=== PATIENT | male | born 1945 | race Caucasian/White ===

== ENCOUNTER 2020-01-27 12:23 | Observation (INO) | payer MEDICARE ==
[~2020-01-27] VITALS: Ht 177.8 cm; Wt 89.0 kg
--- NOTE | 2020-01-27 12:30 | NUR ---
EKG IN TRIAGE
--- NOTE | 2020-01-27 12:48 | NUR ---
74 Y/O MALE PRESENTS TO ED WITH C/O CP. "LAST THURSDAY MY AND I WERE OUT BICYCLISTS. THERE WAS A HILL OUT OF [facility] [place] [facility] THAT IS VERY STEEP AT THE TOP. BEFORE I GOT TO THE TOP I GOT A BAD PAIN IN MY CHEST. IT LASTED ABOUT 10 SECONDS. AND THEN IT HAPPENED A SECOND TIME. THEN ON THURSDAY WE DID THE SAME RIDE AND I GOT THE SAME PAIN. I DID AN EKG AT [facility] ON THURSDAY. SHE SAID I HAD AN ENLARGED RIGHT SIDE OF MY HEART. IT'S LIKE AN ELEPHANT SITTING ON MY CHEST SINCE LAST THURSDAY. IT'S ALL DAY LONG AND DOESN'T GO AWAY. SOMETIMES IT'S WORSE THAN OTHERS. I HAVE AN APPT WITH DR. IVAN THURSDAY TORY. I WOULD NOT CALL IT PAIN RIGHT NOW, DISCOMFORT. " NO N/V/D, TRAUMA, SYNCOPE, SOB. PT PLACED ON CONT PULSE OX, NIBP, COLOR MAKER.
--- NOTE | 2020-01-27 13:48 | NUR ---
PIV ESTABLISHED. BLOOD OBTAINED. PT TOLERATED WITH NO COMPLICATIONS. VSS. XRAY BEDSIDE. NADN. NO NEEDS REQUESTED AT THIS TIME.
[2020-01-27] MEDS ORDERED: ASPIRIN 81 MG TABLET CHEW ONE (13:50)
[2020-01-27 13:54] LABS: BASOPHILS # (AUTO) 0.02 x10^3/uL (0-0.1); BASOPHILS % (AUTO) 0 % (0-1); EOSINOPHILS # (AUTO) 0.07 x10^3/uL (0-0.4); EOSINOPHILS % (AUTO) 2 % (1-7); LYMPHOCYTES # (AUTO) 1.24 x10^3/uL (1-3.4); LYMPHOCYTES % (AUTO) 26 % (22-44); MD NO; MEAN CORPUSCULAR HEMOGLOBIN 31.9 pg (27.5-34.5); MEAN CORPUSCULAR VOLUME 96.7 fL (81-97); MONOCYTES # (AUTO) 0.38 x10^3/uL (0.2-0.8); MONOCYTES % (AUTO) 8 % (2-9); NEUTROPHILS # (AUTO) 3.06 x10^3/uL (1.8-6.8); NEUTROPHILS % (AUTO) 64 % (42-75); PLATELET COUNT 232 x10^3/uL (130-400); RED BLOOD COUNT 4.66 x10^6/uL (4.38-5.82); RED CELL DISTRIBUTION WIDTH 12.9 % (9.4-14.8)
[2020-01-27] MEDS ORDERED: ASPIRIN 81 MG TABLET CHEW PO ONE (14:00)
[2020-01-27] MEDS ORDERED: SODIUM CHLORIDE FLUSH 10ML SYR IVF ONE (14:00)
[2020-01-27 14:03] LABS: ALBUMIN 3.9 g/dL (3.4-5.0); ANION GAP 5 mmol/L (5-15); CALCIUM 9.4 mg/dL (8.5-10.1); CHLORIDE 109 mmol/L (98-107); CREATININE 0.91 mg/dL (0.7-1.3)
[2020-01-27 14:06] LABS: TROPONIN I < 0.015 ng/mL (0.000-0.045)
[2020-01-27] MEDS ORDERED: ROSU10TA2 PO (15:26)
--- NOTE | 2020-01-27 15:28 | NUR ---
PT STATES "I DON'T HAVE ANY CHEST PAIN, BUT I'VE HAD LIKE INDIGESTION ALL DAY. LIKE A BIG LUMP UP IN THE MIDDLE OF MY CHEST." NADN. SESAY.
[2020-01-27] MEDS ORDERED: ONDANSETRON ODT 4 MG PO PRN (15:30)
[2020-01-27] MEDS ORDERED: hydrALAzine 20 MG/ML, 1ML IVPush PRN (15:30)
[2020-01-27] MEDS ORDERED: ACETAMINOPHEN 325 MG TABLET PO PRN (15:30)
[2020-01-27] MEDS ORDERED: LABETALOL 5MG/ML, 20ML IVPush PRN (15:30)
[2020-01-27] MEDS ORDERED: MELATONIN 5 MG TABLET PO PRN (15:30)
[2020-01-27] MEDS ORDERED: ONDANSETRON 2MG/ML, 2ML IVPush PRN (15:30)
[2020-01-27] MEDS ORDERED: morphine SULFATE 10 MG/ML, 1ML IVPush PRN (15:30)
[2020-01-27] MEDS ORDERED: ENOXAPARIN 40 MG/0.4 ML SQ SCH (16:00)
--- NOTE | 2020-01-27 16:02 | NUR ---
REPORT TO CELINE BESS. ALL QUESTIONS ANSWERED.
--- NOTE | 2020-01-27 16:09 | NUR ---
PT BEING TRANSFERRED TO FLOOR. PT LEFT WITH ALL PERSONAL BELONGINGS. INCLUDING CELL PHONE. MELISSA.
[2020-01-27 16:10] LABS: TROPONIN I < 0.015 ng/mL (0.000-0.045)
[2020-01-27 16:20] VITALS: BP 149/88
[2020-01-27 16:49] VITALS: BP 149/88
[2020-01-27 19:53] VITALS: BP 136/78
[2020-01-27] MEDS ORDERED: ATORVASTATIN 40 MG TABLET PO SCH (21:00)
[2020-01-27 21:58] LABS: TROPONIN I < 0.015 ng/mL (0.000-0.045)
[2020-01-28 00:19] VITALS: BP 126/73
[2020-01-28] MEDS ORDERED: ASPIRIN 325 MG TABLET EC PO SCH (06:00)
[2020-01-28 06:02] LABS: CHOL/HDL RATIO 2.7; LDL/HDL RATIO 1.1 (0.5-3.0)
[2020-01-28 07:20] VITALS: BP 128/79
[2020-01-28] MEDS ORDERED: REGADENOSON 0.4 MG/5 ML SYRINGE ONE (08:29)
[2020-01-28] MEDS ORDERED: ASPI-515 PO (13:04)
== END 2020-01-28 15:01 | disposition home or self-care (01) ==
LOC: ED 13:34 → 5SO 15:29
PROVIDERS: ADMIT Internal Medicine; ATTEND Internal Medicine
DX: R07.89 Other chest pain (principal); I20.0 Unstable angina; E78.5 Hyperlipidemia, unspecified; I08.3 Combined rheumatic disorders of mitral, aortic and tricuspid valves; Z79.82 Long term (current) use of aspirin; Z79.899 Other long term (current) drug therapy
CPT/HCPCS: 36415; 71045; 78452; 80048; 80061; 82040; 84484; 85025; 85379; 93005; 93017; 93306; 96372; 99285; A9502; C9898; G0378; J1650; J2785